=== PATIENT | female | born 1985 | race Caucasian/White ===

== ENCOUNTER 2016-06-01 15:15 | Emergency (ER) | payer MEDICAID ==
[2016-06-01] MEDS ORDERED: DUONEB INH ONE (16:02)
[2016-06-01] MEDS ORDERED: Ibuprofen 400 MG TAB ONE (17:40)
== END 2016-06-01 18:23 | disposition home or self-care (01) ==
LOC: ER 15:15
CPT/HCPCS: 36415; 71020; 80053; 81003; 83690; 83880; 84484; 85025; 93005; 94640

== ENCOUNTER 2016-06-11 18:41 | Inpatient (IN) | payer MEDICAID ==
[~2016-06-11] VITALS: Ht 177.8 cm; Wt 124.8 kg
[2016-06-11] MEDS ORDERED: METHYLPRED SOD SUCC 125 MG/2 ML VIAL ONE (19:12)
[2016-06-11 19:25] VITALS: RESP 21
[2016-06-11] MEDS ORDERED: DUONEB INH ONE (19:45)
[2016-06-11] MEDS ORDERED: ALPRAZOLAM 0.25 MG TAB PO PRN (20:15)
[2016-06-11] MEDS ORDERED: BISACODYL 10 MG SUPP RECTAL PRN (20:15)
[2016-06-11] MEDS ORDERED: SALINE FLUSH 10 ML FLUSH PRN (20:15)
[2016-06-11] MEDS ORDERED: MAG HYDROX 30 ML UDC PO PRN (20:15)
[2016-06-11] MEDS ORDERED: DEXTROSE 50% SYRINGE 50 ML IV PRN (20:15)
[2016-06-11] MEDS ORDERED: ALU/MAG/SIM 30 ML UDC PO PRN (20:15)
[2016-06-11] MEDS ORDERED: GLUCAGON 1 MG VIAL IM PRN (20:15)
[2016-06-11] MEDS ORDERED: BISACODYL EC 5 MG TAB PO PRN (20:15)
[2016-06-11 21:00] VITALS: BP_SYST 114; TEMP 98.5
[2016-06-11 21:05] VITALS: BP_SYST 112
[2016-06-11] MEDS ORDERED: EPINEPHrine 1 MG/ML AMP IM PRN (21:14)
[2016-06-11 21:15] VITALS: BP_SYST 115; RESP 19
[2016-06-11 21:29] VITALS: Ht 177.8 cm; Wt 124.8 kg
[2016-06-11] MEDS: LEVOFLOXACIN 750 MG/150 ML 150 ML IV SCH (21:39)
[2016-06-11] MEDS: SALINE FLUSH 10 ML FLUSH SCH (21:40)
[2016-06-11 22:00] VITALS: BP_SYST 124; RESP 16
[2016-06-11] MEDS: clonazePAM 0.5 MG TAB PO SCH (22:11)
[2016-06-11] MEDS: MONTELUKAST 10 MG TAB PO SCH (22:11)
[2016-06-11] MEDS: DUONEB INH SCH (22:41)
[2016-06-11 23:00] VITALS: BP_SYST 115; RESP 16
[2016-06-12] VITALS (11 sets, daily range): BP systolic 98–139; RESP 12–33; TEMP 98–98.4
[2016-06-12] MEDS: SOLU-CORTEF 100 MG/2 ML IV SCH ×3 (00:56→16:13)
[2016-06-12] MEDS: SODIUM CHLORIDE 0.9% FLUSH BAG 500 ML IV SCH (06:00)
[2016-06-12] MEDS: DUONEB INH SCH ×4 (06:57→22:25)
[2016-06-12] MEDS: MONTELUKAST 10 MG TAB PO SCH (10:03)
[2016-06-12] MEDS: clonazePAM 0.5 MG TAB PO SCH ×2 (10:03→21:05)
[2016-06-12] MEDS: PANTOPRAZOLE 40 MG TAB PO SCH (10:03)
[2016-06-12] MEDS: LEVOFLOXACIN 750 MG/150 ML 150 ML IV SCH (10:04)
[2016-06-12] MEDS: SALINE FLUSH 10 ML FLUSH SCH ×2 (10:04→21:05)
[2016-06-12] MEDS: DILAUDID 1 MG/ML AMP IV PRN ×3 (10:05→22:13)
[2016-06-12] MEDS: NEB-BUDESONIDE 0.5 MG INH SCH (18:19)
[2016-06-12] MEDS: NEB-BROVANA 15 MCG/2 ML INH SCH (18:19)
[2016-06-13] MEDS: SOLU-CORTEF 100 MG/2 ML IV SCH ×3 (00:38→18:07)
[2016-06-13] MEDS: SODIUM CHLORIDE 0.9% FLUSH BAG 500 ML IV SCH (06:08)
[2016-06-13] MEDS: PANTOPRAZOLE 40 MG TAB PO SCH (06:08)
[2016-06-13] MEDS: DILAUDID 1 MG/ML AMP IV PRN ×3 (06:09→20:06)
[2016-06-13] MEDS: NEB-BUDESONIDE 0.5 MG INH SCH ×2 (07:38→19:48)
[2016-06-13] MEDS: DUONEB INH SCH ×3 (07:38→19:48)
[2016-06-13] MEDS: NEB-BROVANA 15 MCG/2 ML INH SCH ×2 (07:38→19:48)
[2016-06-13 08:16] VITALS: BP_SYST 130; RESP 18; TEMP 98.5
[2016-06-13] MEDS: LEVOFLOXACIN 750 MG/150 ML 150 ML IV SCH (09:02)
[2016-06-13] MEDS: MONTELUKAST 10 MG TAB PO SCH (09:02)
[2016-06-13] MEDS: clonazePAM 0.5 MG TAB PO SCH ×2 (09:02→20:06)
[2016-06-13] MEDS: SALINE FLUSH 10 ML FLUSH SCH ×2 (09:02→20:06)
[2016-06-13 11:02] VITALS: BP_SYST 144; RESP 18; TEMP 97.9
[2016-06-13 14:31] VITALS: BP_SYST 113; RESP 16; TEMP 98.1
[2016-06-13 19:56] VITALS: BP_SYST 113; RESP 16; TEMP 98.1
[2016-06-13 21:05] VITALS: RESP 16
== END 2016-06-13 21:33 | disposition home or self-care (01) | DRG 189 ==
LOC: ENRESERVDT → ENRESERVTM → ER 18:41 → EMR 20:14 → ENPENDDIS 20:14 → ICU 21:06 → 4NT 06-12 12:27
PROVIDERS: ADMIT Family Medicine; ATTEND Family Medicine
DX: J96.01 Acute respiratory failure with hypoxia (principal); J45.901 Unspecified asthma with (acute) exacerbation; Z86.74 Personal history of sudden cardiac arrest; Z86.711 Personal history of pulmonary embolism; Z79.01 Long term (current) use of anticoagulants; M79.7 Fibromyalgia; Z88.8 Allergy status to other drugs, medicaments and biological substances; F31.9 Bipolar disorder, unspecified; G89.4 Chronic pain syndrome; M19.90 Unspecified osteoarthritis, unspecified site; Z79.51 Long term (current) use of inhaled steroids
CPT/HCPCS: 36415; 36600; 71010; 80048; 80051; 80053; 82330; 82553; 82803; 82947; 83735; 83880; 84439; 84443; 84484; 85025; 85652; 86141; 87804; 94640; 94660; 96374; 99223; 99232; 99233; 99238

== ENCOUNTER 2016-06-23 16:25 | Emergency (ER) | payer MEDICAID ==
[2016-06-23] MEDS ORDERED: NEB-ALBUTEROL 2.5 MG/3 ML INH ONE (16:46)
[2016-06-23] MEDS ORDERED: LORAZEPAM 2 MG/ML VIAL ONE (18:44)
== END 2016-06-23 20:06 | disposition home or self-care (01) ==
LOC: ER 16:25
DX: J45.41 Moderate persistent asthma with (acute) exacerbation (principal)
CPT/HCPCS: 36415; 71010; 80053; 82553; 83880; 84484; 85025; 94640; 96374; 96375